=== PATIENT | male | born 2000 | race African-American/Black ===

== ENCOUNTER 2021-11-18 09:03 | Outpatient (REF) | payer SELFPAY ==
[2021-11-18 10:21] LABS: Binax Internal Control QC Valid; Binax Now Covid-19 Ag Positive (Negative)
== END 2021-11-18 09:04 | disposition home or self-care (01) ==
LOC: HO.LAB 09:03
PROVIDERS: Visit Provider Internal Medicine
DX: Z20.822 Contact with and (suspected) exposure to COVID-19 (principal)
CPT/HCPCS: 36415; C9803